=== PATIENT | male | born 1985 | race Caucasian/White ===

== ENCOUNTER 2018-02-11 18:08 | Emergency (ER) | payer SELFPAY ==
[2018-02-11 18:08] VITALS: BP 154/89; PULSE 97; RESP 14; TEMP 36.5; O2SAT 97; BMI 40.7
--- NOTE | 2018-02-11 18:31 | CT_ITS ---
STUDY: CT ABDOMEN AND PELVIS WITHOUT CONTRAST REASON FOR EXAM: Male, 32 years old. Left lower quadrant pain RADIATION DOSAGE (If Supplied By Facility): CTDIvol = ( 23.80 ) mGy, DLP = ( 1474.98 ) mGycm TECHNIQUE: Transaxial images were obtained from the dome of the diaphragm to the symphysis pubis without oral contrast, and without intravenous contrast. Sagittal and coronal images were reconstructed. Individualized dose optimization techniques were used for this CT. COMPARISON: 10/20/2014 FINDINGS: Evaluation of the abdominal viscera is limited in the absence of intravenous contrast. The visualized lung bases are clear. The visualized portions of the heart and pericardium are within normal limits. There are no calcified gallstones present. The liver demonstrates an unremarkable unenhanced appearance. The spleen is normal in size. The pancreas demonstrates an unremarkable unenhanced appearance. The adrenal glands are within normal limits. There are no obstructing renal stones. There is no hydronephrosis. Normal visualized stomach. There is no bowel obstruction. There are inflammatory changes in the left lower quadrant adjacent to an inflamed sigmoid diverticulum. This is consistent with acute sigmoid diverticulitis. The appendix is visualized and appears normal. The aorta is normal in caliber. There is no abdominal or pelvic free air, free fluid, fluid collection or lymphadenopathy. There are no destructive osseous lesions. CT/Abdomen/Pelvis without Cont IMPRESSION: Acute sigmoid diverticulitis. No evidence of perforation or abscess formation. Electronically Signed: Valente Rhodes, at 19:58 EDT Tel , Service support ,
[2018-02-11 18:59] LABS: Absolute Lymphocyte Count 2.62 X10^3/ul (0.83-4.51); Absolute Neutrophil Count 13.3 X10^3/uL (2.0-7.7); Basophil# 0.07 X10^3/uL; Basophil% 0.4 % (0-1); Eosinophil# 0.21 X10^3/uL; Eosinophils% 1.2 % (0-5); Hematocrit 44.1 % (40-54); Hemoglobin 14.8 g/dl (13.0-16.5); Lymphocyte # 2.62 X10^3/ul (4.0); Lymphocyte % 14.8 % (19-41); Mean Corp Hgb Conc 33.6 g/gl (32-36); Mean Corpuscular Hgb 29.8 pg (27.0-32.0); Mean Corpuscular Volume 88.9 fL (80-94); Mean Platelet Vol. 10.2 fl (6.2-12.0); Monocyte# 1.43 X10^3/uL; Monocyte% 8.1 % (0-10); Neutrophil # 13.33 X10^3/uL (2.7-7.7); Neutrophil % 75.1 % (47-70); Platelet Count 342 K/mm3 (150-450); RBC Distribution Width CV 14.7 % (11.6-14.6); RBC Distribution Width SD 47.5 fl (35.1-43.9); Red Blood Count 4.96 M/mm3 (4.6-6.2); White Blood Count 17.7 K/mm3 (4.4-11.0)
[2018-02-11 19:01] LABS: POSITIVE COUNT NO; POSITIVE DIFFERENTIAL NO; POSITIVE MORPHOLOGY NO
[2018-02-11] MEDS: 0.9% Normal Saline 1,000 ML 1000 ML IV (19:07)
[2018-02-11] MEDS: Ketorolac 30 MG/ML Syringe IV (19:08)
[2018-02-11 19:09] LABS: Anion Gap 5 (5-15); BUN 12 mg/dL (7-18); BUN/Creat Ratio 11.4 RATIO (10-20); Calcium,Total 8.4 mg/dL (8.5-10.1); Chloride 105 mmol/L (98-107); Creatinine, Serum 1.05 mg/dL (0.70-1.30); EST Glomerular Filtration Rate 86 mL/min (>60); Est Glom Filt Rate - Afr Amer 104 mL/min (>60); Glucose 75 mg/dL (74-106); Sodium Level 140 mmol/L (136-145)
[2018-02-11 20:08] VITALS: BP 137/83; PULSE 68; RESP 14; O2SAT 98
[2018-02-11 20:13] LABS: Bacteria 0 SEEN /hpf (None Seen); Mucous, Urine 0 SEEN /hpf (<or=2+); White Blood Cells 0 SEEN /hpf (0-5)
[2018-02-11 20:20] LABS: Color, Urine Yellow (Yellow); Glucose, Dipstick Normal (Normal); Ketone-Dipstick Negative (Negative); Leukocyte Esterase-Dipstick Negative /ul (Negative); Nitrite-Dipstick Negative (Negative); Occult Blood-Urine 25 /ul (Negative); Protein-Dipstick Negative (Negative); Urine Bilirubin Dipstick Negative (Negative); Urine Clarity Sl. Cloudy (Clear); Urine Urobilinogen Normal (Normal)
[2018-02-11] MEDS: Ondansetron 4 MG/2 ML Vial IV (20:21)
[2018-02-11] MEDS: Morphine 4 MG/ML Syringe IV (20:21)
--- NOTE | 2018-02-11 20:24 | ED.VISSUMM ---
- ER Visit Summary Date of Service: 02/11/18 Chief Complaint: Abdominal pain History of Present Illness: The patient is a 32 M who presents with abdominal pain. He does have a history of sigmoid diverticulitis with perforation and abscess which was managed conservatively without surgical intervention. He states over the past 2-3 days he has had left lower quadrant abdominal pain which is cramping but also stabbing at times. It was initially intermittent but has now been more constant for the past day. Currently his pain is 6 out of 10 but at its worst is 8 out of 10. It is worse when he eats. He denies nausea vomiting diarrhea or any urinary symptoms. No fevers. Physical Examination: Afebrile vitals are unremarkable Patient resting comfortably in no distress Moist mucous membranes Heart regular rate and rhythm Lungs are clear Abdomen soft nondistended with left lower quadrant tenderness Normal genitourinary examination Alert Test Results: CBC notable for white blood cell count of 17.7. Chemistries normal. CT of the abdomen and pelvis shows acute sigmoid diverticulitis without perforation or abscess. Emergency Department Course and Treatment: Patient was initially given Toradol with only mild improvement of symptoms. He was then also given morphine and Zofran. His CT does show acute sigmoid diverticulitis without evidence of complication. He will be treated with IV Cipro and Flagyl. Although he does have a significant leukocytosis he is not febrile or tachycardic and does not have any evidence of any surgical complication. I discussed observation versus outpatient management. The patient does feel well enough to go home with oral antibiotics. He does understand return for new or worsening symptoms. He was instructed on specific signs and symptoms to monitor for. We will also contact his primary care physician to try to arrange for timely reevaluation. Patient comfortable with this plan all questions answered at bedside. Treatment Plan: [] Disposition: Discharge Impression: Acute sigmoid diverticulitis This note was generated with [employer] dictation software. It may contain incorrect words, spelling, and punctuation that were not noted in review of the chart prior to signing ED Disposition - Plan for ED Patient: Chief Complaint: Abd Pain Referrals: Jonathon Adam MD [Primary Care Provider] -
--- NOTE | 2018-02-11 20:27 | ED.DEP ---
ED Disposition - Plan for ED Patient: Chief Complaint: Abd Pain Instructions: ED Diverticulitis Prescriptions: Oxycodone HCl/Acetaminophen [Percocet 5/325] 1 tab PO Q6H PRN PRN 3 Days #12 tab PRN Reason: Pain Metronidazole [Flagyl] 500 mg PO Q8H #30 tab Ciprofloxacin [Cipro] 500 mg PO BID #20 tab Referrals: Jonathon Adam MD [Primary Care Provider] -
[2018-02-11 20:29] LABS: Red Blood Cells-Urine 0-5 SEEN /hpf (0-5); Squamous Epithelial Cells - UA 0-5 SEEN /hpf (0-5)
== END 2018-02-11 23:06 | disposition home or self-care (01) ==
PROVIDERS: Emergency Provider Emergency Medicine; Family Provider Family Medicine; PCP Family Medicine
DX: K57.32 Diverticulitis of large intestine without perforation or abscess without bleeding (principal); Z87.19 Personal history of other diseases of the digestive system; Z72.0 Tobacco use
CPT/HCPCS: 74176; 80048; 81001; 85025; 96361; 96365; 96366; 96368; 96374; 96375; 99282; J7030; A4216; J0744; J2405